=== PATIENT | male | born 1975 | race Caucasian/White ===

== ENCOUNTER 2020-05-26 17:20 | Emergency (ER) | payer MEDICAID ==
[~2020-05-26] VITALS: Ht 177.8 cm; Wt 87.8 kg
[~2020-05-26 17:20] MED LIST: GABA300C PO; HYDR25TA6 PO; IBUP-1223 PO; LISI40TA9 PO; METH40TA3 PO
--- NOTE | 2020-05-26 17:38 | NUR ---
CATHY TAYLOR AT BEDSIDE FOR EVALUATION
[2020-05-26 18:02] VITALS: BP 124/74
--- NOTE | 2020-05-26 18:10 | NUR ---
arthur while in ed patient able to change back in to clothes for D/C
== END 2020-05-26 18:04 | disposition home or self-care (01) ==
LOC: ED 17:52
DX: B34.9 Viral infection, unspecified (principal); Z20.822 Contact with and (suspected) exposure to COVID-19; I10 Essential (primary) hypertension; K21.9 Gastro-esophageal reflux disease without esophagitis
CPT/HCPCS: 99283; U0003